=== PATIENT | female | born 1990 | race Two or more races ===

== ENCOUNTER 2021-10-29 23:10 | Emergency (ER) | payer OTHER ==
[2021-10-29 23:35] VITALS: BP 119/73; PULSE 96; TEMP 98.5; BMI 41.5
[2021-10-30] MEDS ORDERED: valACYclovir HCL 1000 MG TABLET PO ONE (01:03)
[2021-10-30] MEDS ORDERED: predniSONE 20 MG TABLET (UD) PO ONE (01:03)
[2021-10-30] MEDS ORDERED: valACYclovir HCL 500 MG TABLET (FP) ONE (01:19)
[2021-10-30] MEDS ORDERED: predniSONE 20 MG TABLET (UD) ONE (01:19)
== END 2021-10-30 01:49 | disposition home or self-care (01) ==
LOC: JER 23:10
DX: G51.0 Bell's palsy (principal)
CPT/HCPCS: 99283-25